=== PATIENT | female | born 1995 | race African-American/Black ===

== ENCOUNTER 2018-01-24 23:52 | Emergency (ER) | payer SELFPAY ==
[~2018-01-24] VITALS: Ht 170.2 cm; Wt 61.2 kg
[2018-01-25 00:07] VITALS: BP_SYST 109
[2018-01-25 00:45] LABS: HEMOGLOBIN 12.3 g/dL (12.0-16.0)
[2018-01-25 00:46] LABS: BILIRUBIN,URINE NEGATIVE (NEGATIVE); BLOOD, URINE 3+ (NEGATIVE); CLARITY/URINE HAZY (CLEAR); COLOR,URINE YELLOW (YELLOW); GLUCOSE,URINE NEGATIVE (NEGATIVE); KETONES,URINE NEGATIVE (NEGATIVE); LEUKOCYTE ESTERASE ,URINE TRACE (NEGATIVE); NITRITE, URINE NEGATIVE (NEGATIVE); PROTEIN URINE TRACE (NEGATIVE); UROBILINOGEN,URINE 0.2 (0.2-1.0)
[2018-01-25 00:54] LABS: HEMATOCRIT 38.7 % (36-48); MEAN CORPUSCULAR HEMOGLOBIN 27 pg (27-31); MEAN CORPUSCULAR HGB CONC 32 % (32-36); MEAN CORPUSCULAR VOLUME 84 fL (79.0-98.0); PLATELET COUNT (AUTO) 269 K/uL (130-430); RED BLOOD CELL COUNT(AUTO) 4.61 MIL/uL (4.2-6.2); RED CELL DISTRIBUTION WIDTH 13.2 % (9.0-15.0); WHITE BLOOD COUNT (AUTO) 7.1 K/uL (4.8-10.8)
[2018-01-25 00:54] LABS: BACTERIA,URINE FEW /HPF (None Seen); RBC,URINE 50-80 /HPF (0-3)
[2018-01-25 01:03] LABS: CALCIUM 8.9 mg/dL (8.4-11.0); CREATININE 1.01 mg/dL (0.55-1.30); POTASSIUM 3.4 mmol/L (3.5-5.1)
[2018-01-25 01:14] LABS: ATYPICAL LYMPHOCYTES % 0 % (0-0); BAND % (MANUAL) 0 % (0-6); BASOPHILS % (MANUAL) 0 % (0-2); EOSINOPHILS % (MANUAL) 1 % (0-7); LYMPHOCYTES % (MANUAL) 27 % (20-46); METAMYELOCYTES % 6 % (0-0); MONOCYTES % (MANUAL) 2 % (0-11); MYELOCYTES % 2 % (0-0)
[2018-01-25 01:15] LABS: ALBUMIN 4.2 g/dL (3.4-4.8); TOTAL BILIRUBIN 0.6 mg/dL (0.0-1.0)
[2018-01-25] MEDS ORDERED: CEPHALEXIN 500 MG CAPSULE PO ONE (04:00)
[2018-01-25 04:10] VITALS: BP_SYST 102
== END 2018-01-25 04:10 | disposition home or self-care (01) ==
LOC: SED 23:52
DX: N39.0 Urinary tract infection, site not specified (principal); J45.909 Unspecified asthma, uncomplicated
CPT/HCPCS: 36415; 80053; 81000-TC; 81025; 84702-TC; 85007; 85027; 99283

== ENCOUNTER 2019-05-01 13:53 | Emergency (ER) | payer MEDICAID ==
[~2019-05-01] VITALS: Ht 170.2 cm; Wt 68.0 kg
--- NOTE | 2019-05-01 13:55 | NUR ---
Patient to ER bed 05 to gown for evaluation. Side rails up.
--- NOTE | 2019-05-01 13:55 | NUR ---
Nicolás villasenor in [facility] - 05/01/19 at 1626 by [email or web address] Patient to bed to [facility] for evaluation. Side rails up.
--- NOTE | 2019-05-01 14:00 | NUR ---
PADMA Linn at bedside examining patient.
--- NOTE | 2019-05-01 14:00 | NUR ---
PT CAME TO ER FOR PAIN IN HER CHEST, SHE STATED SHE HAD A SIMILAR PROBLEM LAST DECEMBER FOR WHICH SHE SAW A DOCTOR. CURRENTLY RESTING IN [facility] COM[facility]ORT[facility], AO4, NO DISTRESS NOTED AT THIS TIME.
[2019-05-01 14:10] VITALS: BP_SYST 113
[2019-05-01] MEDS ORDERED: IBUPROFEN 600 MG TABLET PO ONE (14:45)
[2019-05-01 16:19] VITALS: BP_SYST 122
--- NOTE | 2019-05-01 16:24 | NUR ---
Patient given written and verbal discharge instructions and verbalizes understanding. ER MD discussed with patient the results and treatment provided. Patient in stable condition. ID arm band removed. No Rx given. Patient educated on pain management and to follow up with PMD. Pain Scale 0/10 . Opportunity for questions provided and answered. Medication side effect fact sheet provided.
== END 2019-05-01 16:19 | disposition home or self-care (01) ==
LOC: SED 13:53
DX: R07.89 Other chest pain (principal); J45.909 Unspecified asthma, uncomplicated
CPT/HCPCS: 71045; 81025; 99283